=== PATIENT | male | born 1975 | race Caucasian/White ===

== ENCOUNTER 2018-12-01 15:16 | Observation (INO) | payer OTHER ==
[2018-12-01 15:49] LABS: PLATELET COUNT 218 10^3/uL (150-400)
--- NOTE | 2018-12-01 16:12 | EDPHY ---
H & P Time Seen by Provider: 12/01/18 15:25 HPI/ROS: CHIEF COMPLAINT: Abnormal lab HISTORY OF PRESENT ILLNESS: Patient has history of high cholesterol, was sent in by his primary care physician today for an abnormal troponin of 0.146. On Thursday night he was at a meeting at 10:00 p.m. He started feeling numbness and tingling in his arms and legs and felt lightheaded. Checks blood pressure was high. He had some numbness in his thighs and then some numbness in his left elbow. He and has subsequently a episode of 45 min of what he describes as"heat "in the left side of his chest which did not reoccur after resolved that night. Currently does not have any chest pain. No leg swelling or cough or hemoptysis. Not short of breath. No palpitations. REVIEW OF SYSTEMS: Eye: no change in vision ENT: no sore throat Cardiac: HPI Pulmonary: no cough or SOB or hemoptysis Abdomen: no vomiting, diarrhea, abdominal pain Musculoskeletal: no back pain Skin: no rash Neuro: no headache Constitutional: no fever : no urinary symptoms A comprehensive 10 point review of systems is otherwise negative aside from elements mentioned in the history of present illness. PAST MEDICAL HISTORY: Hypercholesterolemia No family history of premature coronary disease Social history: Nonsmoker, no recent immobilization or trauma or surgery. General Appearance: Alert and conversant, cooperative. Eyes: No scleral icterus. ENT, Mouth: Normal mucous membranes. Respiratory: Normal respiratory effort, breath sounds equal, lungs are clear to auscultation. Cardiovascular: Regular rate and rhythm. Gastrointestinal: Abdomen is soft and non tender. Neurological: Alert, face symmetric, normal motor and sensory in extremities. Skin: Warm and dry, no rashes. Musculoskeletal: No peripheral edema. No calf tenderness. Leg symmetric. Psychiatric: Not agitated. Emergency Department course/MDM: 1612: discussed with Dr. Jensen, recommends admit hospitalist. Chest pain 2 days ago with elevated troponin today. Plan for chest x-ray and repeat troponin. Pulmonary embolism considered, I think would be unlikely, currently asymptomatic. 1627: Results including both troponins discussed with the patient, and with Dr. Jensen from Cardiology and Dr. Mao from hospitalist service. Oral aspirin in ED. Smoking Status: Never smoked Constitutional: Initial Vital Signs Temperature (C) 36.4 C 12/01/18 15:19 Heart Rate 57 L 12/01/18 15:19 Respiratory Rate 18 12/01/18 15:19 Blood Pressure 139/88 H 12/01/18 15:19 O2 Sat (%) 98 12/01/18 15:19 O2 Delivery Mode Room Air Allergies/Adverse Reactions: morphine Allergy (Verified 12/01/18 15:19) Home Medications: Medication Instructions Recorded Ibuprofen [Motrin (*)] 400 mg PO Q6H PRN 12/01/18 Zolpidem Tartrate [Ambien 5MG (*)] 5 mg PO HS PRN 12/01/18 Medical Decision Making - Diagnostics EKG Interpretation: 12-lead EKG interpreted by me; official reading is in computer system. My interpretation is sinus rhythm with rate 56 and early repolarization pattern, no ischemic changes. Imaging Results: Imaging Impressions Chest X-Ray 12/01/18 15:37 Impression: 1. Compression deformities of the midthoracic spine. 2. There is no acute cardiopulmonary abnormality identified. Imaging: I viewed and interpreted images myself Differential Diagnosis: Differential diagnosis considered for chest pain including but not limited to myocardial ischemia, aortic dissection, pericarditis, pulmonary embolus, chest wall pain, pleural inflammation and pulmonary infectious causes. - Data Points Laboratory Results: Laboratory Results 12/01/18 15:31 12/01/18 15:31 12/01/18 12/01/18 12/01/18 15:40 15:31 15:31 WBC RBC Hgb Hct MCV MCH MCHC RDW Plt Count MPV Neut % (Auto) Lymph % (Auto) [place] % (Auto) Eos % (Auto) Baso % (Auto) Nucleat RBC Rel Count Absolute Neuts (auto) Absolute Lymphs (auto) Absolute Monos (auto) Absolute Eos (auto) Absolute Basos (auto) Absolute Nucleated RBC Immature Gran % Immature Gran # Sodium 138 mEq/L mEq/L (135-145) Potassium 4.2 mEq/L mEq/L (3.5-5.2) Chloride 104 mEq/L mEq/L (97-110) Carbon Dioxide 27 mEq/l mEq/l (22-31) Anion Gap 7 mEq/L mEq/L (6-14) BUN 22 mg/dL mg/dL (7-23) Creatinine 1.0 mg/dL mg/dL (0.7-1.3) Estimated GFR > 60 Glucose 79 mg/dL mg/dL (70-100) Calcium 9.3 mg/dL mg/dL (8.5-10.4) POC Troponin I 0.00 ng/mL ng/mL (0.00-0.08) Troponin I 0.154 ng/mL H ng/mL (0.000-0.034) 12/01/18 15:31 WBC 6.12 10^3/uL 10^3/uL (3.80-9.50) RBC 4.95 10^6/uL 10^6/uL (4.40-6.38) Hgb 15.5 g/dL g/dL (13.7-17.5) Hct 45.4 % % (40.0-51.0) MCV 91.7 fL fL (81.5-99.8) MCH 31.3 pg pg (27.9-34.1) MCHC 34.1 g/dL g/dL (32.4-36.7) RDW 13.2 % % (11.5-15.2) Plt Count 218 10^3/uL 10^3/uL (150-400) MPV 10.7 fL fL (8.7-11.7) Neut % (Auto) 59.5 % % (39.3-74.2) Lymph % (Auto) 31.2 % % (15.0-45.0) [place] % (Auto) 8.2 % % (4.5-13.0) Eos % (Auto) 0.2 % L % (0.6-7.6) Baso % (Auto) 0.7 % % (0.3-1.7) Nucleat RBC Rel Count 0.0 % % (0.0-0.2) Absolute Neuts (auto) 3.65 10^3/uL 10^3/uL (1.70-6.50) Absolute Lymphs (auto) 1.91 10^3/uL 10^3/uL (1.00-3.00) Absolute Monos (auto) 0.50 10^3/uL 10^3/uL (0.30-0.80) Absolute Eos (auto) 0.01 10^3/uL L 10^3/uL (0.03-0.40) Absolute Basos (auto) 0.04 10^3/uL 10^3/uL (0.02-0.10) Absolute Nucleated RBC 0.00 10^3/uL 10^3/uL (0-0.01) Immature Gran % 0.2 % % (0.0-1.1) Immature Gran # 0.01 10^3/uL 10^3/uL (0.00-0.10) Sodium Potassium Chloride Carbon Dioxide Anion Gap BUN Creatinine Estimated GFR Glucose Calcium POC Troponin I Troponin I Medications Given: Discontinued Medications Aspirin (Aspirin) 324 mg PO EDNOW ONE Stop: 12/01/18 16:28 Last Admin: 12/01/18 16:42 Dose: 324 mg Point of Care Test Results: Chemistry 12/01/18 15:40 POC Troponin I 0.00 ng/mL ng/mL (0.00-0.08) Departure - Departure Disposition: [facility] Inpatient Acute Clinical Impression: Troponin level elevated Chest pain Qualifiers: Chest pain type: unspecified Qualified Code(s): R07.9 - Chest pain, unspecified Condition: Good
--- NOTE | 2018-12-01 16:23 | CPEKG ---
Test Reason : OPEN Blood Pressure : / mmHG Vent. Rate : 056 BPM Atrial Rate : 056 BPM P-R Int : 177 ms QRS Dur : 098 ms QT Int : 423 ms P-R-T Axes : 035 065 044 degrees QTc Int : [address] elev, probable normal early repol pattern Confirmed by Nahun Bundy ([id number]) on 12/01/2018 4:23:13 PM Referred By: Confirmed By:Nahun Bundy
[2018-12-01] MEDS ORDERED: ASPIRIN 81 MG CHEWABLE TAB PO ONE (16:27)
[2018-12-01] MEDS ORDERED: ZOLPIDEM TARTRATE 5 MG TAB PO PRN (17:37)
--- NOTE | 2018-12-01 18:06 | PDGENHP ---
<Carey Walker - Last Filed: 12/01/18 18:23> History and Physical - Chief Complaint Chest pain - History of Present Illness This is a 43 y/o male with history of elevated cholesterol presenting to the emergency room from the recommendation of his PCP Dr. Curry after having elevated troponin of 0.164. He reports on Thursday, he was attending a work meeting. Around 10:00pm, he began to feel numbness and tingling to his arms and legs. At the same time, he started to feel lightheaded. No syncopal event. No palpitations, shortness of breath, diaphoresis, or nausea. The numbness sensation seemed to move around and he felt it just in his left arm and a "heat" like sensation to his left chest wall for 45 minutes. Denies any other associated symptoms. Did not radiate to neck or back. Nothing alleviated nor aggravated it. It spontaneously resolved on its own. He did continuously check his blood pressure that night and noticed his normal blood pressure of 120/80 was elevated during this episode (148/86). He reports over the years, he has had similar episodes minus the "heat" sensation to the chest. He is a relatively healthy gentleman with only medical history of elevated cholesterol. Lipid panel today at PCP office were the following: Total Cholesterol: 214 (H), Triglyceride:152 (H), LDL: 142 (H) , VLDL: 30 (H), Non-HDL: 172, Cholesterol/HDL Risk: 1.0 (within range), LDL/HDL ris: 1.0 ( within range), Cholesterol/HDL ratio: 5.10 (H), LDL/HDL ratio: 3.37 (within normal range). He denies any recent trauma or surgery. He does travel frequently for work, mainly to [place] approximately every other week. He returned from a personal trip to [place] about a week ago. Social 1. 2. Active with golfing, hiking, skiing 3. 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 4. Denies tobacco or illicit drug use. Drinks alcohol socially which consists of 2-4 alcoholic beverages/week. History Information - Allergies/Home Medication List Allergies/Adverse Reactions: morphine Allergy (Verified 12/01/18 15:19) Home Medications: Ibuprofen [Motrin (*)] 400 mg PO Q6H PRN 12/01/18 [Last Taken 11/30/18] Zolpidem Tartrate [Ambien 5MG (*)] 5 mg PO HS PRN 12/01/18 [Last Taken 11/30/18] I have personally reviewed and updated: family history, medical history, social history, surgical history Past Medical History: See HPI list - Surgical History Additional surgical history: See HPI list - Family History Positive for: non-pertinent - Social History Smoking Status: Never smoked Alcohol Use: Rarely Drug Use: None Review of Systems Review of Systems: ROS: 10pt was reviewed & negative except for what was stated in HPI & below Constitutional: Reports: no symptoms EENMT: Reports: no symptoms Cardiac: Reports: chest pain, lightheadedness Respiratory: Reports: no symptoms Gastrointestinal: Reports: no symptoms Genitourinary: Reports: no symptoms Muscolosketal: Reports: no symptoms Skin: Reports: no symptoms Neurological: Reports: numbness, tingling Hematologic/Lymphatic: Reports: no symptoms Immunologic/Allergy: Reports: other (See allergy list) Physical Exam Physical Exam: Lab data and imaging reviewed Temp Pulse Resp BP Pulse Ox 36.4 C 69 16 143/85 H 96 12/01/18 15:19 12/01/18 16:42 12/01/18 16:42 12/01/18 16:42 12/01/18 16:42 Constitutional: no apparent distress, appears nourished, not in pain Eyes: PERRL, anicteric sclera, EOMI Ears, Nose, Mouth, Throat: moist mucous membranes, hearing normal, ears appear normal, no oral mucosal ulcers Cardiovascular: regular rate and rhythym, no murmur, rub, or gallop, No edema Peripheral Pulses: 2+: dorsalis-pedis (R) (Radial 2+), dorsalis-pedis (L) ( Radial 2+) Respiratory: no respiratory distress, no rales or rhonchi, clear to auscultation Gastrointestinal: normoactive bowel sounds, soft, non-tender abdomen, no palpable masses Genitourinary: no bladder fullness, no bladder tenderness Skin: warm, normal color, no rashes or abrasions, no fluctuance, no induration, No mottled Musculoskeletal: full muscle strength, no muscle tenderness, normal joint ROM, no joint effusions Neurologic: AAOx3, sensation intact bilaterally, CN II-XII Intact Psychiatric: interacting appropriately, not anxious, not encephalopathic, thought process linear Lymph, Heme, Immunologic: no cervical LAD, no supraclavicular LAD Lab Data & Imaging Review 12/01/18 15:31 12/01/18 15: WBC 6.12 10^3/uL (3.80-9.50) 12/01/18 15: RBC 4.95 10^6/uL (4.40-6.38) 12/01/18 15: Hgb 15.5 g/dL (13.7-17.5) 12/01/18 15: Hct 45.4 % (40.0-51.0) 12/01/18 15: MCV 91.7 fL (81.5-99.8) 12/01/18 15: MCH 31.3 pg (27.9-34.1) 12/01/18 15: MCHC 34.1 g/dL (32.4-36.7) 12/01/18 15: RDW 13.2 % (11.5-15.2) 12/01/18 15: Plt Count 218 10^3/uL (150-400) 12/01/18 15: MPV 10.7 fL (8.7-11.7) 12/01/18 15: Neut % (Auto) 59.5 % (39.3-74.2) 12/01/18 15: Lymph % (Auto) 31.2 % (15.0-45.0) 12/01/18 15: [place] % (Auto) 8.2 % (4.5-13.0) 12/01/18 15: Eos % (Auto) 0.2 % (0.6-7.6) L 12/01/18 15: Baso % (Auto) 0.7 % (0.3-1.7) 12/01/18 15: Nucleat RBC Rel Count 0.0 % (0.0-0.2) 12/01/18 15: Absolute Neuts (auto) 3.65 10^3/uL (1.70-6.50) 12/01/18 15: Absolute Lymphs (auto) 1.91 10^3/uL (1.00-3.00) 12/01/18 15:31 Absolute Monos (auto) 0.50 10^3/uL (0.30-0.80) 12/01/18 15:31 Absolute Eos (auto) 0.01 10^3/uL (0.03-0.40) L 12/01/18 15: Absolute Basos (auto) 0.04 10^3/uL (0.02-0.10) 12/01/18 15: Absolute Nucleated RBC 0.00 10^3/uL (0-0.01) 12/01/18 15: Immature Gran % 0.2 % (0.0-1.1) 12/01/18 15: Immature Gran # 0.01 10^3/uL (0.00-0.10) 12/01/18 15:31 Sodium 138 mEq/L (135-145) 12/01/18 15:31 Potassium 4.2 mEq/L (3.5-5.2) 12/01/18 15: Chloride 104 mEq/L (97-110) 12/01/18 15:31 Carbon Dioxide 27 mEq/l (22-31) 12/01/18 15:31 Anion Gap 7 mEq/L (6-14) 12/01/18 15:31 BUN 22 mg/dL (7-23) 12/01/18 15:31 Creatinine 1.0 mg/dL (0.7-1.3) 12/01/18 15:31 Estimated GFR > 60 12/01/18 15: Glucose 79 mg/dL (70-100) 12/01/18 15: Calcium 9.3 mg/dL (8.5-10.4) 12/01/18 15:31 POC Troponin I 0.00 ng/mL (0.00-0.08) 12/01/18 15:40 Troponin I 0.154 ng/mL (0.000-0.034) H 12/01/18 15:31 Assessment & Plan Plan: This is a 43 y/o male presenting with elevated troponin and symptomatic 2 days ago. No longer symptomatic while in the emergency room. He is a relatively healthy patient with only concerns for elevated cholesterol. 1. Chest pain: Heart score 4 (moderate suspicious, non-specific repolarization disturbance, 1-2 risk factors, troponin >1 normal limit). EKG SR with signs of early repolarization. CXR negative for any acute processes. Asymptomatic currently. Hemodynamically stable. Considered ACS as well as PE. -Cardiology consulted and aware: Dr. Jensen to evaluate pt -Cycle trops x 2 -EKG repeat at 2100 then PRN -Cont tele -Echo complete pending -If asymptomatic, treadmill stress test tomorrow -D-Dimer pending; consider the amount of traveling he does, I am consider possible chest CTA. BLE no color change, no unilateral edema to calf, nnamdi pedal pulses 2+, no calf tenderness. 2. 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 Consider beginning statins. Diet: Regular, NPO at midnight tonight VTE ppx: SCDs Code: Full Dispo: Admit to obs <Adriel Mao - Last Filed: 12/01/18 21:17> History and Physical - History of Present Illness Review of Systems Review of Systems: Physical Exam Physical Exam: Temp Pulse Resp BP Pulse Ox 36.7 C 57 L 16 133/86 H 96 12/01/18 20:05 12/01/18 20:05 12/01/18 20:05 12/01/18 20:05 12/01/18 20:05 O2 (L/minute) 96 Lab Data & Imaging Review 12/01/18 15:31 12/01/18 15:31 WBC 6.12 10^3/uL (3.80-9.50) 12/01/18 15:31 RBC 4.95 10^6/uL (4.40-6.38) 12/01/18 15:31 Hgb 15.5 g/dL (13.7-17.5) 12/01/18 15:31 Hct 45.4 % (40.0-51.0) 12/01/18 15:31 MCV 91.7 fL (81.5-99.8) 12/01/18 15:31 MCH 31.3 pg (27.9-34.1) 12/01/18 15:31 MCHC 34.1 g/dL (32.4-36.7) 12/01/18 15:31 RDW 13.2 % (11.5-15.2) 12/01/18 15:31 Plt Count 218 10^3/uL (150-400) 12/01/18 15: MPV 10.7 fL (8.7-11.7) 12/01/18 15: Neut % (Auto) 59.5 % (39.3-74.2) 12/01/18 15: Lymph % (Auto) 31.2 % (15.0-45.0) 12/01/18 15: [place] % (Auto) 8.2 % (4.5-13.0) 12/01/18 15: Eos % (Auto) 0.2 % (0.6-7.6) L 12/01/18: Baso % (Auto) 0.7 % (0.3-1.7) 12/01/18: Nucleat RBC Rel Count 0.0 % (0.0-0.2) 12/01/18 15: Absolute Neuts (auto) 3.65 10^3/uL (1.70-6.50) 12/01/18 15: Absolute Lymphs (auto) 1.91 10^3/uL (1.00-3.00) 12/01/18: Absolute Monos (auto) 0.50 10^3/uL (0.30-0.80) 12/01/18 15: Absolute Eos (auto) 0.01 10^3/uL (0.03-0.40) L 12/01/18 15: Absolute Basos (auto) 0.04 10^3/uL (0.02-0.10) 12/01/18: Absolute Nucleated RBC 0.00 10^3/uL (0-0.01) 12/01/18: Immature Gran % 0.2 % (0.0-1.1) 12/01/18: Immature Gran # 0.01 10^3/uL (0.00-0.10) 12/01/18: D-Dimer < 0.27 ug/mLFEU (0.00-0.50) 12/01/18 15: Sodium 138 mEq/L (135-145) 12/01/18 15: Potassium 4.2 mEq/L (3.5-5.2) 12/01/18: Chloride 104 mEq/L (97-110) 12/01/18 15:31 Carbon Dioxide 27 mEq/l (22-31) 12/01/18 15:31 Anion Gap 7 mEq/L (6-14) 12/01/18 15:31 BUN 22 mg/dL (7-23) 12/01/18 15:31 Creatinine 1.0 mg/dL (0.7-1.3) 12/01/18 15:31 Estimated GFR > 60 12/01/18 15:31 Glucose 79 mg/dL (70-100) 12/01/18 15:31 Calcium 9.3 mg/dL (8.5-10.4) 12/01/18 15:31 POC Troponin I 0.00 ng/mL (0.00-0.08) 12/01/18 15:40 Troponin I 0.154 ng/mL (0.000-0.034) H 12/01/18 15:31 Assessment & Plan Assessment: Chest pain (Acute) Troponin level elevated (Acute) Plan: Patient seen and evaluated independently and care plan reviewed with HIPOLITO Walker as above. Please see separate documentation for further details.
--- NOTE | 2018-12-01 21:22 | HOSPPROG ---
Hospitalist Progress Note Assessment/Plan: 43 yo M with no significant PMH presenting from his PCPs office with concerns for an elevated troponin following an episode of prolonged chest pain 2 days prior # chest pain: patient reports that the pain began Thursday evening following a conference and taking a 5 hour energy drink--pain lasted all night Thursday, resolved Thursday and today but saw his PCP in f/u who obtained trop that was 0.164. Unclear at this point if patient had some sort of ACS on Thursday with trop still positive from that versus myopericarditis type picture. Plan for now is to continue to trend trops overnight, serial ecg, cardiology has been consulted and will see patient in am--will defer further ischemic eval to their discretion--stress testing versus angio. Currently cp free, echo ordered for am. # observation status Patient new to my care. Old records reviewed and summarized as above. Care plan reviewed with ER doctor and HIPOLITO Walker, please see her separate H&P for further details. Objective: Vital Signs Temp Pulse Resp BP Pulse Ox 36.7 C 57 L 16 133/86 H 96 12/01/18 20:05 12/01/18 20:05 12/01/18 20:05 12/01/18 20:05 12/01/18 20:05 ICD10 Worksheet Patient Problems: Problems Problem Status Onset Chest pain Acute Troponin level elevated Acute
--- NOTE | 2018-12-01 23:07 | CPEKG ---
Test Reason : OPEN Blood Pressure : / mmHG Vent. Rate : 056 BPM Atrial Rate : 056 BPM P-R Int : 178 ms QRS Dur : 096 ms QT Int : 413 ms P-R-T Axes : 025 041 022 degrees QTc Int : 399 ms Sinus rhythm Ventricular premature complex ST elev, probable normal early repol pattern Confirmed by Wale Wong ([id number]) on 12/01/2018 11:07:15 PM Referred By: Confirmed By:Wale Wong
[2018-12-02] MEDS ORDERED: LIDOCAINE 1% 300 MG/30 ML SDV ONE (09:39)
[2018-12-02] MEDS ORDERED: fentaNYL 100 MCG/2 ML INJ ONE (09:40)
[2018-12-02] MEDS ORDERED: IOPAMIDOL (ISOVUE-370) 150 ML BTL IV ONE (09:40)
[2018-12-02] MEDS ORDERED: MIDAZOLAM 2 MG/2 ML VIAL ONE (09:40)
[2018-12-02] MEDS ORDERED: DIAZEPAM 5 MG TAB PO ONE ×2 (09:44→14:30)
[2018-12-02] MEDS ORDERED: FAMOTIDINE 20 MG TAB PO ONE (09:44)
[2018-12-02] MEDS ORDERED: ACETAMINOPHEN 325 MG TAB PO PRN (09:44)
[2018-12-02] MEDS ORDERED: ASPIRIN EC 325 MG TAB PO ONE (09:44)
[2018-12-02] MEDS ORDERED: diphenhydrAMINE 25 MG CAP PO ONE (09:44)
[2018-12-02] MEDS ORDERED: TEMAZEPAM 15 MG CAP PO PRN (09:44)
[2018-12-02] MEDS ORDERED: NITROGLYCERIN 0.4 MG BTL SL PRN (09:44)
--- NOTE | 2018-12-02 09:52 | ECHO ---
[email or web address] [address] [address] Main: [phone] Fax: Transthoracic Echocardiogram Name: MARIA EUGENIA KNIGHT MR#: [id number] Study Date: 12/02/2018 Study Time: 07:50 AM Date of : 1975 Age: 43 year(s) Height: 182.9 cm (72 in.) Weight: 78.47 kg (173 lb.) BSA: 2 m2 Gender: Male Examination: Echo Indication: Chest Pain Image Quality: Adequate Contrast: Requested by: Carey Walker BP: 125 mmHg/76 mmHg Heart Rate: Rhythm: Indication: Chest Pain Procedure Staff High Pressure Boiler Operator: Nneka Handley [facility] Reading Physician: Sigifredo Jensen MD Requesting Provider: Conclusions: Normal size left ventricle. No LV hypertrophy. Normal global systolic LV function. EF is 56 %. Basal to mid anterior septal hypokinesis. Normal diastolic LV function. Upper normal size right ventricle. Normal RV function. The left atrium is normal in size. Normal appearing atrial septum. The right atrium is mildly dilated. Normal size ascending aorta measuring 2.8 cm. No pericardial effusion. Measurements: Chambers Valvular Assessment AV/MV Valvular Assessment TV/PV Normal Normal Normal Name Value Range Name Value Range Name Value Range Ao Birgit (MM): 2.9 cm (2.2 cm-3.7 AV Vmax: 1.05 m/s (1 m/s-1.7 PV Vmax: 1.12 m/s (0.6 m/s-0.9 cm) m/s) m/s) IVSd (2D): 0.8 cm (0.6 cm-1.1 AV maxP mmHg ( - ) PV PGmax: 5 mmHg ( - ) cm) LVOT Vmax: 1.03 m/s (0.7 m/s-1.1 LVDd (2D): 4.4 cm (4.2 cm-5.9 m/s) cm) [place] (Vmax): 4.1 cm2 ( - ) LVDs (2D): 3.1 cm (2.1 cm-4 MV E Vmax: 0.60 m/s ( - ) cm) MV A Vmax: 0.38 m/s ( - ) LVPWd (2D): 0.9 cm (0.6 cm-1 MV E/A: 1.58 ( - ) cm) LVOTd 2.3 cm 2.3 cm mm LVEF (BP): 56 % (>=55 %) Patient: MARIA EUGENIA KNIGHT Study Date: 12/02/2018 Page 1 of 2 07:50 AM RVDd(2D): 4.2 cm (1.9 cm-3.8 cmmm) Continued Measurements: Chambers Valvular Assessment AV/MV Name Value Name Value LADs: 3.5 cm MV DecTime: 194 m/s LADs Lon.0 cm MV E' Septal: 0.10 m/s LA Area: 16.3 cm2 MV E/E' Septal: 6.10 LA Volume: 46 ml MV E/E' Lateral: 6.40 LA Volume Index: 23.0 ml/m2 TAPSE: 1.9 cm RA Area: 21.7 cm2 Additional Vessels Name Value Ao Ascendin.8 cm Findings: Left Ventricle: Normal size left ventricle. No LV hypertrophy. Normal global systolic LV function. EF is 56 %. Basal to mid anterior septal hypokinesis.Normal diastolic LV function. Right Ventricle: Upper normal size right ventricle. Normal RV function. Left Atrium: The left atrium is normal in size. Normal appearing atrial septum. Right Atrium: The right atrium is mildly dilated. Mitral Valve: The mitral valve is normal in appearance. Trivial mitral valve regurgitation. No mitral stenosis is present. Aortic Valve: The aortic valve is tri-leaflet. There is no significant aortic valve regurgitation. No aortic valve stenosis is present. Tricuspid Valve: The tricuspid valve is normal in appearance and function. Trivial tricuspid valve regurgitation. Pulmonary artery pressure is not obtained due to inadequate TR jet. Pulmonic Valve: The pulmonic valve is normal in appearance. There is no pulmonic regurgitation seen. Aorta: Normal size aortic root measuring 2.9 cm. Normal size ascending aorta measuring 2.8 cm. IVC: Normal size and course of the IVC. Pericardium: No pericardial effusion. (No Signature Object) Patient: MARIA EUGENIA KNIGHT Study Date: 12/02/2018 Page 2 of 2 07:50 AM [id number]
--- NOTE | 2018-12-02 10:09 | GCON ---
CARDIOLOGY CONSULTATION DATE OF CONSULTATION: 12/02/2018 REFERRING PHYSICIAN: Adriel Mao MD REASON FOR CONSULTATION: Chest pain, elevated troponin. HISTORY OF PRESENT ILLNESS: The patient is a pleasant 43-year-old gentleman with no significant past medical history, who presents to [facility] at the request of his primary care physi ulysses, Dr. Codi Curry, after detecting an elevated troponin of 0.154 during an office visit yester day after being seen for complaints of atypical chest symptoms. The patient states he was in his usual state of health on Thursday. He states that he had a late after noon 5-hour meeting scheduled. He states he was feeling significantly fatigued due to jet lag from r eturning from a recent trip to [facility]. He took a [employer], which is something he does not do regularly. He noticed during the meeting that he developed paresthesias and numbness in his arms and legs. He noticed his heart was racing. He denies any associated chest pain, chest pressure, shortn ess of breath, nausea, or vomiting. He states he went home and checked his blood pressure, which was 148/86. He did not seek medical attention at that time. He went to bed. He states he woke up at a pproximately 2:00 in the morning with bilateral leg numbness. He then developed left arm numbness, a s well as this atypical chest pain, which he described as a "heat sensation" in his left anterior janina st wall that persisted for minutes and resolved spontaneously. As a result of this, he presented to Dr. Curry's office for evaluation. With detection of abnormal troponin, he was requested to present to [facility] for further evaluation. ECG yesterday afternoon at 1530 demonstrated sinus rhythm at 56 beats per minute, with ST-segment elevation diffusely, consistent with early repolarization patter n. ECG yesterday at 2116 demonstrated sinus rhythm at 56 beats per minute, with ST elevation suggestive of repolarization, with an isolated PVC. He did have new T-wave inversions in lead III. PAST MEDICAL HISTORY: None. MEDICATIONS: On admission, none. ALLERGIES: Morphine. SOCIAL HISTORY: He is . He has 2 children, ages 15 and 12. 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 He is a lifelong nonsmoker. He exercises 6 days a week. No history of marijuana use. Occasional alcohol . FAMILY HISTORY: No family history of premature coronary artery disease. PHYSICAL EXAMINATION: VITAL SIGNS: Blood pressure 125/76, heart rate 57, in sinus rhythm, respirato ry rate of 12, oxygen saturation 92% on room air, temperature 36.6. GENERAL: He is awake, alert, or iented, appropriate, no apparent distress. There is no evidence of JVP or carotid bruits. LUNGS: C lear to auscultation bilaterally. CARDIAC: S1, S2. Regular rate and rhythm. No rubs or gallops. ABDOMEN: Soft, nontender, nondistended. There is no pulsatile mass or abdominal bruit. Distal puls es are intact. No evidence of cyanosis, clubbing or edema. LABORATORY DATA: Sodium 138, potassium 4.2, chloride 104, bicarb 27, BUN 22, creatinine 1. Troponin on admission 0.154, increasing to 0.171, and trending down to 0.162. White blood cell count 6.12, h emoglobin of 15.5, hematocrit of 45.4, platelet count 218. D-dimer was negative at less than 0.27. Recent lipid profile demonstrates total cholesterol of 214, triglycerides of 152, and LDL of 142. IMAGING: ECGs as described above. Echocardiogram demonstrates mild basal anterior septal and mid anterior septal wall hypokinesis, with preserved left ventricular function. No significant other findings on his echocardiogram. IMPRESSION: 1. Atypical chest pain. 2. Mild troponin elevation. 3. Hyperlipidemia with LDL of 142. 4. Mid and basal anterior septal wall hypokinesis, with preserved left ventricular function. SUMMARY: The patient is a pleasant 43-year-old gentleman with recent onset of atypical left-sided ch est symptoms, as well as paresthesias in the left arm, with mildly elevated troponin, ECG demonstrati ng early repolarization, evidence of hyperlipidemia with LDL of 142, coupled with mid and basal anter ior septal wall hypokinesis. I have recommended the patient undergo a left heart catheterization bas ed on the above findings. Risks and benefits have been discussed in detail. He is agreeable to purs ue. He has no contraindication to dual antiplatelet therapy. He has no upcoming surgeries. PLAN: 1. Left heart catheterization. 2. Further recommendations to follow pending the results of left heart catheterization. 3. His history of intermittent episodes of numbness and sensation of heart racing may also represent underlying supraventricular tachycardia. Would recommend outpatient long-term cardiac monitoring. /[id number]/MODL
--- NOTE | 2018-12-02 10:17 | PDPROPOC ---
Sedation Plan of Care Sedation Plan of Care: vital signs stable, mental status noted, patient educated of risks, benefits, alternatives, patient can tolerate sedation ASA Classification: ASA 2 Planned drugs: midazolam Mallampati Score: Class 2 Mallampati Reference Image: Patient passed 3-3-2 rule?: Yes
[2018-12-02 10:41] LABS: INR 1.05 (0.83-1.16); PROTIME(PATIENT) 13.9 SEC (12.0-15.0)
[2018-12-02] MEDS ORDERED: ATROPINE SULFATE 1 MG/10 ML SYR IVP PRN (11:47)
[2018-12-02] MEDS ORDERED: ONDANSETRON 4 MG/2 ML VIAL IVP PRN (11:47)
--- NOTE | 2018-12-02 12:05 | CPIP ---
DATE OF PROCEDURE: 12/02/2018 PROCEDURE PERFORMED: Left heart catheterization. INDICATION FOR PROCEDURE: Left-sided chest discomfort, left arm paresthesias, elevated troponin, and evidence of mid and basal anterior septal wall mild hypokinesis on echocardiogram. PROCEDURE: 1. Left heart catheterization. 2. Left coronary angiography. 3. Right coronary angiography. 4. Left ventriculogram. 5. Right common femoral artery angiography. DESCRIPTION OF PROCEDURE: After informed consent was obtained for left heart catheterization as well as possible intervention, the patient was brought to the cardiac catheterization lab where he was pr epped and draped in sterile fashion. Using 1% lidocaine, the right groin was anesthetized. Using th e micropuncture modified Seldinger technique, a 6-Spanish catheter was placed in the right common femo ral artery without complications. JL4 catheter was used to take images of the left coronary anatomy in multiple projections. JL4 catheter was exchanged over a guidewire for a JR4 catheter. JR4 cathet er was used to cannulate the right coronary artery. Multiple images were obtained of the right coron fabiola artery in multiple projections. The JR4 catheter was exchanged over a guidewire for angled pigta il catheter. Angled pigtail catheter was used to cross the aortic valve. Left ventriculogram was pe rformed. LVEDP was assessed. Aortic valve gradient was assessed on pull-back. Angled pigtail renee ter was removed over wire without complications. Imaging of the right common femoral artery sheath s ite demonstrated placement below the inguinal ligament and above the bifurcation with no evidence of trauma to the iliac or femoral vessels. FINDINGS: 1. Left main normal size and caliber bifurcates into left anterior descending and left circumflex co ronary artery. There is no evidence of coronary disease within the left main. 2. Left anterior descending artery is free of coronary artery disease. There is a moderate sized fi rst and second septal branch with no evidence of coronary disease. There is a moderate sized diagona l branch that runs parallel with the LAD that is free of coronary artery disease. 3. Circumflex vessel is a nondominant vessel. There is a moderate to small size first obtuse margin al branch. There is no evidence of coronary disease within the obtuse marginal branch of the circumf capri vessel. 4. Right coronary artery is a dominant vessel that bifurcates into PDA and PLV. There is no evidenc e of coronary disease within the right coronary artery. HEMODYNAMICS: LVEF 60%. LVEDP 12 mmHg. Aortic valve gradient: None. CONCLUSIONS: 1. Normal coronary arteries. 2. Normal left ventricular function. 3. Normal hemodynamics with LVEDP of 12 mmHg. PLAN: Patient will be brought to recovery where sheath will be pulled. Will hold manual pressure wi thout closure device with bedrest x6 hours post procedure. Would recommend further evaluation with o utpatient ZIO Patch phototypesetting equipment monitor in the setting of concern for possible underlying supraventricula r tachycardia. /[id number]/MODL
--- NOTE | 2018-12-02 14:04 | ASMTCMCOM ---
CM Note CM Note Notes: Pts case discussed in tx rounds. Pt is a 43 y/o man admitted for chest pain. Pt went to laboratory development technician w/ Dr. Jensen and got a left heart cath. Pt will most likely d/c independent when medically stable. No therapies ordered at this time. CM available for changes. Plan: Independent Date Signed: 12/02/2018 02:03 PM Electronically Signed By:CESAR Coy
[2018-12-02 16:10] VITALS: BP 125/78
--- NOTE | 2018-12-02 16:21 | PDDCSUM ---
Discharge Summary Discharge Summary: This is a 43 yo male who was admitted with chest discomfort for several days and had presented to his pcp and found to have a mild elevated troponin. He was admitted via the ED as troponin was confirmed to have a slight elevation. A TTE showed mild septal wall Hypokinesis. Given these findings, Dr. Jensen performed heart cath which was not consistent with CAD and no stenting was performed. The pt was recommended to have a Zio heart monitor/patch and this is being arranged by cardiology. Upon further questioning, the pt reports bilateral hand and feet paresthesias and weakness when he is supine and only intermittent. this has been occurring for 3 months. Symptoms are intermittent. The weakness is not progressive. He had not other c/o weakness or vision changes. He does not have a LATIF when the sxs occur. They only occur when he is supine and go away when he moves. Initially, Cardiology had recommended, neuro testing after the pt met his post cat bed rest. However, after discussion with the pt, these sx's do not seem acute and the pt does not want to stay overnight to obtain imaging including an MRI. He agrees to f/u with his PCP regarding this DDX: -cp -elevated trop Exam: NAD NO FOCAL WEAKNESS RRR CTA B EOMI, PEERL, CNII-XII INTACT MEDS: SEE MED REC F/U: -WITH PCP NEXT WEEK -WITH CARDS PER [facility] SCHEDULED APPT TOTAL TIME SPENT ON D/C IS 35 MINS
--- NOTE | 2018-12-02 16:23 | PDCARPN ---
Cardiology Progress Note Assessment/Plan: Assessment: 1. elevated troponin 2. atypical chest pain 3. parathesias 4. palpitations Plan: -Post LHC instructions discussed. -30 preventice heart monitor -follow up with cardiology after event monitor -with elevated troponin of unclear eitiology, would start aspirin 81 mg daily 12/02/18 16:24 Subjective: Mitch underwent LHC earlier today. Normal Cors, LV fx and LVEF. He remains in NSR to sinus dano. O2 Sat 92% on room air. D Dimer was negative. No LE edema. Echo with normal Left and Right ventricular function. No TR to calculate RVSP. Mild HUSSEIN. Low clinical suspicion for PE with normal vitals, No edema, no sob or pleuritic pain and neg D-Dimer Reviewed/Discussed With: hospitalist, multidisciplinary team Objective: Vital Signs (8 Hrs) Temp Pulse Resp BP Pulse Ox 12/02/18 16:00 65 125/78 H 12/02/18 15:00 50 L 106/69 12/02/18 14:03 54 L 12/02/18 14:00 51 L 113/71 12/02/18 13:47 36.8 C 57 L 16 117/82 H 93 Intake/Output (24 Hrs) 12/01/18 12/02/18 12/03/18 05:59 05:59 05:59 Intake Total 400 Balance 400 Intake: Oral (ml) 400 Other: Weight 79 kg Number of Voids Toilet 2 Result Diagrams: 12/01/18 15:31 12/01/18 15:31 Cardiac Labs: Cardiac Lab Results (72 Hrs) 12/02/18 12/01/18 03:25 21:30 Troponin I 0.162 H 0.171 H - Physical Exam Constitutional: WDWN Cardiovascular: regular rate and rhythm, no murmurs, no rubs, no gallops, other (Groin site without hematoma or ecchymosis ) Peripheral Pulses: 2+: dorsalis-pedis (R), dorsalis-pedis (L) Respiratory: clear to auscultate bilat Neurologic: AAOx3, CN II-XII grossly intact Psychiatric: cooperative, interactive, following commands ICD10 Worksheet Patient Problems: Problems Problem Status Onset Chest pain Acute Troponin level elevated Acute
== END 2018-12-02 18:15 | disposition home or self-care (01) ==
LOC: F2W 19:34
PROVIDERS: ADMIT Internal Medicine; ATTEND Internal Medicine
PROC: B2151ZZ Fluoroscopy of Left Heart using Low Osmolar Contrast (ICD-10-PCS; principal; 2018-12-01)
PROC: 4A023N7 Measurement of Cardiac Sampling and Pressure, Left Heart, Percutaneous Approach (ICD-10-PCS; principal; 2018-12-01)
PROC: B2111ZZ Fluoroscopy of Multiple Coronary Arteries using Low Osmolar Contrast (ICD-10-PCS; principal; 2018-12-01)
DX: R07.9 Chest pain, unspecified (principal); R79.89 Other specified abnormal findings of blood chemistry
CPT/HCPCS: 71046; 93005; 93306; 93458; 99285; G0378; 84484-ER; J1200; J1644; J2250; J3010; Q9967

== ENCOUNTER → 2018-12-28 | Outpatient (CLI) | payer OTHER ==
[~2018-12-28] MED LIST: GADOBUTROL 10 ML VIAL IVP ONE
== END ==
LOC: FIMAGING 11:03
PROVIDERS: ATTEND Psychiatry & Neurology Neurology
DX: R20.2 Paresthesia of skin (principal); M48.02 Spinal stenosis, cervical region
CPT/HCPCS: A9585